=== PATIENT | female | born 1975 | race Caucasian/White ===

== ENCOUNTER 2020-07-11 17:11 | Emergency (ER) | payer OTHER, SELFPAY ==
[2020-07-11 17:26] VITALS: RESP 18; TEMP 97.2
[2020-07-11] MEDS ORDERED: BACITRACIN OINT 1 EACH PACKET TOPICAL ONE (17:32)
[2020-07-11] MEDS ORDERED: LIDOCAINE 1% INJ 10MG/ML (20 ML MDV) SQ ONE (17:32)
[2020-07-11] MEDS ORDERED: DIPH,PERTUS(ACELL)TETVAC-LF 0.5 ML VIAL IM ONE (17:32)
--- NOTE | 2020-07-11 17:49 | ED ---
Wound/Laceration HPI - General Chief Complaint: Wound/Laceration Stated Complaint: Laceration Time Seen by Provider: 07/11/20 17:24 Source: EMS Mode of arrival: EMS Limitations: no limitations - History of Present Illness Initial Comments: Patient is a 44-year-old female presenting to the emergency department via EMS with complaints of a laceration to her chin. Patient does admit to drinking today, she states she's had 4 beers, and she fell in the bathroom hitting the bottom of her chin on the bathroom sink. Patient states she may have lost consciousness for about 1-2 seconds. She denies having a headache, no neck pain, no chest pain. She denies any other injuries from this fall. Patient seems quite upset that she is in the ER. She denies being on blood thinners. She states she was drinking today because of this the anniversary of her brothers passing. She denies any suicidal or homicidal thoughts. Patient does not remember her last tetanus vaccine. Patient denies any other complaints from this fall. On arrival to the ER, her vitals are stable. - Related Data Home Medications Medication Instructions Recorded Confirmed Ibuprofen [Motrin] 600 mg PO TID PRN 01/05/16 01/05/16 Multivit with Calcium,Iron,Min 1 tab PO DAILY 01/05/16 01/05/16 [Women's Daily Multivitamin] Allergies Allergy/AdvReac Type Severity Reaction Status Date / Time No Known Allergies Allergy Verified 01/05/16 19:28 Review of Systems ROS Statement: Those systems with pertinent positive or pertinent negative responses have been documented in the HPI. ROS Other: All systems not noted in ROS Statement are negative. Past Medical History Past Medical History: No Reported History Additional Past Medical History / Comment(s): chronic constipation History of Any Multi-Drug Resistant Organisms: None Reported Past Surgical History: Orthopedic Surgery Additional Past Surgical History / Comment(s): leg surgery as child Past Anesthesia/Blood Transfusion Reactions: No Reported Reaction Past Psychological History: Anxiety, Depression Smoking Status: Current every day smoker Past Alcohol Use History: Occasional Past Drug Use History: None Reported General Exam - General Exam Comments Initial Comments: GENERAL: Patient is well-developed and well-nourished. Patient is nontoxic and in no acute distress, appears intoxicated. HEAD: Atraumatic, normocephalic. No hematoma, no signs of basal skull fracture. EYES: Pupils equal round and reactive to light, extraocular movements intact, sclera anicteric, conjunctiva are normal. Eyelids were unremarkable. ENT: TMs normal, nares patent, oropharynx clear without exudates. Moist mucous membranes. NECK: Normal range of motion, supple without lymphadenopathy or JVD. No midline tenderness. LUNGS: Unlabored respirations. Breath sounds clear to auscultation bilaterally and equal. No wheezes rales or rhonchi. HEART: Regular rate and rhythm without murmurs, rubs or gallops. ABDOMEN: Soft, nontender, normoactive bowel sounds. No guarding, no rebound. No masses appreciated. : Deferred MUSCULOSKELETAL: Normal extremities with adequate strength and normal range of motion, no pitting or edema. No clubbing or cyanosis. NEUROLOGICAL: Patient is alert and oriented x 3. Motor and sensory are also intact. Cranial nerves II through XII grossly intact. Symmetrical smile. Normal speech, normal gait. PSYCH: Normal mood, normal affect, appears intoxicated. SKIN: Warm, Dry, normal turgor, no rashes. Patient has a 2 cm laceration to the underneath of her chin, there is a mild to moderate active bleeding, it is being controlled with a bandage. Limitations: no limitations Course Vital Signs 07/11/20 17:22 Temperature 97.2 F L Pulse Rate 84 Respiratory 18 Rate Blood Pressure 136/98 O2 Sat by Pulse 100 Oximetry Procedures - Laceration Laceration #1 Consent Obtained: verbal consent Indication: laceration Site: face (chin) Size (cm): 2 Description: linear Depth: simple, single layer Anesthetic Used: lidocaine 1% Anesthesia Technique: local infiltration Amount (mls): 4 Pre-repair: irrigated extensively Type of Sutures: nylon Size of Sutures: 5-0 Number of Sutures: 8 Technique: simple, interrupted Patient Tolerated Procedure: well Medical Decision Making - Medical Decision Making Patient is a 44-year-old female here via EMS after she fell hitting the bottom of her chin on the kitchen sink. Patient is a 2 cm laceration to the underneath portion of her chin with mild to moderate active bleeding. She is not currently on blood thinners. She is intoxicated, admitted to drinking 4 beers. She does admit to losing consciousness for about 1-2 seconds. No other findings on exam. CT shows no acute intracranial abnormality, cerebral atrophy. He since wound was cleaned, closed with 8, 50 sutures. Patient tolerated procedure well. The re is no active bleeding at this time. Bacitracin and a bandage was also applied. We did update patient's tetanus vaccine today as well. She needs to have sutures removed in 7-10 days. She is keep area clean and dry. She is in agreement with this plan of care. Patient does have family coming to get her from the ER. She is stable for discharge. Return parameters were discussed with the patient she verbalized understanding. Case discussed with Dr. Mukherjee. Disposition Clinical Impression: Fall, Alcohol intoxication, Chin laceration Disposition: HOME SELF-CARE Condition: Stable Instructions (If sedation given, give patient instructions): Care For Your Stitches (ED) Additional Instructions: Please return to the Emergency Department if symptoms worsen or any other concerns. Stitches need to be removed in 7-10 days. Keep area clean and dry. Patent dry with a towel, do not rub. May take Tylenol or Motrin for discomfort, apply ice to the area for swelling and pain control. Is patient prescribed a controlled substance at d/c from ED?: No Referrals: Nonstaff,Physician [Primary Care Provider] - 1-2 days
--- NOTE | 2020-07-11 18:04 | CT ---
EXAMINATION TYPE: CT brain wo con DATE OF EXAM: 07/11/2020 COMPARISON: 01/05/2016 HISTORY: Fall. CT DLP: 1064.4 mGycm Automated exposure control for dose reduction was used. Ventricles have normal size. There is no mass effect nor midline shift. There is no sign of intracran ial hemorrhage. Calvarium is intact. There is some cerebral atrophy. IMPRESSION: There is cerebral atrophy and is relatively young patient. No acute intracranial abnormality. Atrophy increased compared to old exam.
[2020-07-11 19:15] VITALS: BP 140/94; PULSE 95
== END 2020-07-11 19:10 | disposition home or self-care (01) ==
LOC: EC 17:11
DX: S01.81XA Laceration without foreign body of other part of head, initial encounter (principal); F10.129 Alcohol abuse with intoxication, unspecified; Z23 Encounter for immunization; F17.200 Nicotine dependence, unspecified, uncomplicated; W18.39XA Other fall on same level, initial encounter; Y93.89 Activity, other specified; Y92.091 Bathroom in other non-institutional residence as the place of occurrence of the external cause
CPT/HCPCS: 70450; 90715; 90471; 12011; 99284; J2001